=== PATIENT | female | born 1950 ===

== ENCOUNTER 2020-03-09 06:00 | Outpatient (RCR) | payer MEDICARE, OTHER, SELFPAY | END 2020-03-13 23:59 | disposition home or self-care (01) | LOC: MPT 06:00 | PROVIDERS: PCP Nurse Practitioner Family; Referring Provider Nurse Practitioner; Visit Provider Nurse Practitioner | DX: M54.32 Sciatica, left side (principal); M54.31 Sciatica, right side | CPT/HCPCS: 97110; 97140; 97161; 97530 ==

== ENCOUNTER 2020-03-14 06:00 | Outpatient (RCR) | payer MEDICARE, OTHER, SELFPAY | END 2020-04-13 23:59 | disposition home or self-care (01) | LOC: MPT 06:00 | PROVIDERS: PCP Nurse Practitioner Family; Referring Provider Nurse Practitioner; Visit Provider Nurse Practitioner | DX: M54.32 Sciatica, left side (principal); M54.31 Sciatica, right side | CPT/HCPCS: 97110; 97140; 97530 ==

== ENCOUNTER 2020-04-14 06:00 | Outpatient (RCR) | payer MEDICARE, OTHER, SELFPAY | END 2020-05-13 23:59 | disposition home or self-care (01) | LOC: MPT 06:00 | PROVIDERS: PCP Nurse Practitioner Family; Referring Provider Nurse Practitioner; Visit Provider Nurse Practitioner | DX: M54.32 Sciatica, left side (principal); M54.31 Sciatica, right side | CPT/HCPCS: 97140; 97530 ==

== ENCOUNTER 2021-05-13 06:00 | Outpatient (RCR) | payer MEDICARE, OTHER, SELFPAY | END 2021-05-13 23:59 | disposition home or self-care (01) | LOC: MPT 06:00 | PROVIDERS: Referring Provider Nurse Practitioner; Visit Provider Nurse Practitioner | DX: M54.6 Pain in thoracic spine (principal) | CPT/HCPCS: 97140; 97162; G0283 ==

== ENCOUNTER 2021-05-14 06:00 | Outpatient (RCR) | payer MEDICARE, OTHER, SELFPAY | END 2021-06-13 23:59 | disposition home or self-care (01) | LOC: MPT 06:00 | PROVIDERS: Visit Provider Nurse Practitioner | DX: M54.6 Pain in thoracic spine (principal) | CPT/HCPCS: 97110; 97140; G0283 ==

== ENCOUNTER 2021-06-14 06:00 | Outpatient (RCR) | payer MEDICARE, OTHER, SELFPAY | END 2021-07-07 14:41 | disposition home or self-care (01) | LOC: MPT 06:00 | PROVIDERS: Visit Provider Nurse Practitioner | DX: M54.6 Pain in thoracic spine (principal) | CPT/HCPCS: 97110; 97140; G0283; L0456 ==

== ENCOUNTER 2021-12-23 06:00 | Outpatient (RCR) | payer MEDICARE, OTHER, SELFPAY | END 2022-01-11 23:59 | disposition home or self-care (01) | LOC: MPT 06:00 | PROVIDERS: Referring Provider Nurse Practitioner; Visit Provider Nurse Practitioner | DX: M54.30 Sciatica, unspecified side (principal) | CPT/HCPCS: 97110; 97140; 97162; G0283 ==

== ENCOUNTER 2022-01-12 06:00 | Outpatient (RCR) | payer MEDICARE, OTHER, SELFPAY | END 2022-02-10 23:59 | disposition home or self-care (01) | LOC: MPT 06:00 | PROVIDERS: Referring Provider Nurse Practitioner; Visit Provider Nurse Practitioner | DX: M54.31 Sciatica, right side (principal) | CPT/HCPCS: 97110; G0283 ==